=== PATIENT | female | born 1990 | race Caucasian/White ===

== ENCOUNTER → 2017-10-15 11:29 | Outpatient (CLI) | payer BC, SELFPAY ==
[2017-10-15 14:57] LABS: Absolute Lymphocyte Count 2.04 X10^3/ul (0.83-4.51); Absolute Neutrophil Count 3.7 X10^3/uL (2.0-7.7); Basophil# 0.04 X10^3/uL; Basophil% 0.6 % (0-1); Eosinophil# 0.14 X10^3/uL; Eosinophils% 2.2 % (0-5); Hematocrit 41.3 % (37-47); Hemoglobin 14.2 g/dl (12.0-15.0); Lymphocyte # 2.04 X10^3/ul (4.0); Lymphocyte % 32.7 % (19-41); Mean Corp Hgb Conc 34.4 g/gl (32-36); Mean Corpuscular Hgb 32.9 pg (27.0-32.0); Mean Corpuscular Volume 95.6 fL (81-99); Mean Platelet Vol. 9.8 fl (6.2-12.0); Monocyte# 0.36 X10^3/uL; Monocyte% 5.8 % (0-10); Neutrophil # 3.65 X10^3/uL (2.7-7.7); Neutrophil % 58.7 % (47-70); Platelet Count 332 K/mm3 (150-450); RBC Distribution Width SD 41.8 fl (35.1-43.9); Red Blood Count 4.32 M/mm3 (4.2-5.4); White Blood Count 6.2 K/mm3 (4.4-11.0)
[2017-10-15 14:58] LABS: POSITIVE COUNT NO; POSITIVE DIFFERENTIAL NO; POSITIVE MORPHOLOGY NO
[2017-10-15 15:28] LABS: Estradiol 81.2 pg/mL; Follicle Stimulating Hormone 3.1 mIU/mL; Prolactin 7.8 ng/mL
[2017-10-18 09:41] LABS: HEPATITIS B SURFACE AG Negative (Negative); HSV 1 IgG < 0.91 index (0.00-0.90); HSV 2 IgG < 0.91 index (0.00-0.90)
[2017-10-19 02:54] LABS: Rapid Plasmin Reagin (RPR) NONREACTIVE (NONREACTIVE)
== END ==
PROVIDERS: Family Provider Family Medicine; PCP Family Medicine; Visit Provider Obstetrics & Gynecology
DX: N93.9 Abnormal uterine and vaginal bleeding, unspecified (principal)
CPT/HCPCS: 82670; 83001; 84146; 85025; 86592; 86695; 86696; 87340; 87521

== ENCOUNTER → 2017-10-15 19:20 | Outpatient (CLI) | payer BC, SELFPAY ==
[2017-10-15 22:26] LABS: Chlamydia Trachomatis by PCR Negative (Negative); Neisserai gonorrhoeae by PCR Negative (Negative); Probe Check PASS; Sample Adequacy Control PASS; Specimen Processing Control PASS
[2017-10-19 12:01] LABS: HPV Reflexed? NOT INDICATED
== END ==
PROVIDERS: Family Provider Family Medicine; PCP Family Medicine; Visit Provider Obstetrics & Gynecology
DX: Z12.4 Encounter for screening for malignant neoplasm of cervix (principal); N39.3 Stress incontinence (female) (male)
CPT/HCPCS: 87491; 87591; 88175; G0145

== ENCOUNTER 2018-03-21 05:25 | Emergency (ER) | payer BC, SELFPAY ==
[2018-03-21 05:26] VITALS: BP 108/76; PULSE 81; RESP 16; TEMP 36.7; O2SAT 97
[2018-03-21] MEDS: predniSONE 20 MG Tablet 40 MG PO (05:46)
[2018-03-21] MEDS: Famotidine 20 MG Tablet PO (05:46)
[2018-03-21] MEDS: DiphenhydrAMINE 25 MG Capsule PO (05:46)
--- NOTE | 2018-03-21 05:53 | ED.VISSUMM ---
- ER Visit Summary Date of Service: 03/21/18 Chief Complaint: Swelling History of Present Illness: The patient is a 27 F who presents with lip and tongue swelling. Symptoms started about an hour prior to arrival. The patient has been packing to move and woke up early this morning with muscle aches. She took some naproxen. About an hour later, she started to have swelling of her upper and lower lips and her tongue. These areas feel itchy, and she also has some itchiness to her hands. She has some redness to her face but has not noticed any other rash. No trouble breathing. No GI symptoms like cramps or nausea. No history of anaphylaxis. She does report an allergy to Vicodin, but it makes her feel awful. She also reports an allergy to penicillin, and it makes her nauseated. Patient has a history of depression and anxiety. She takes Prozac and trazodone. These are not new for her. Patient denies any other new chemical contacts. No fevers or any other associated symptoms. Physical Examination: Afebrile and vital signs unremarkable. Patient is alert and oriented. No acute distress. Sitting, moving, breathing comfortably. She has trace edema to her upper and lower lips and tongue. Otherwise airway unremarkable. No lesions noted. She does have some erythema to her face around her mouth. No specific lesions. No ulcerations or necrosis noted. No skin peeling noted. Eyes and conjunctive are unremarkable. HEENT exam otherwise unremarkable. Heart regular. Lungs clear without wheezes. The remainder of her skin appears unremarkable. Test Results: None indicated. Emergency Department Course and Treatment: I am suspicious for an allergic reaction. She does not meet criteria for anaphylaxis. I also considered other cutaneous pathologies. There is nothing to suggest SJS or more severe reactions. Nothing to suggest cellulitis. No history of hereditary angioedema. No NOMAN inhibitor use. Patient was treated with Benadryl, Pepcid, and prednisone. She was monitored in the emergency department. Patient was advised to stop taking naproxen. On reevaluation, patient is feeling better. Rash is improved. Itching has decreased. Redness has decreased. Patient will be discharged. Continue prednisone, Benadryl, and Pepcid at home. She was cautioned that Benadryl can cause somnolence. Treatment Plan: As above Disposition: Discharged Impression: 1. Rash unclear etiology This note was generated with [employer] dictation software. It may contain incorrect words, spelling, and punctuation that were not noted in review of the chart prior to signing ED Disposition - Plan for ED Patient: Disposition: Home or Assisted Living Chief Complaint: Allergic Reaction Instructions: ED Drug React Allergic Prescriptions: Prednisone 40 mg PO DAILY 4 Days #16 tab Famotidine [Pepcid] 20 mg PO BID 5 Days #10 tab DiphenhydrAMINE [Benadryl] 25 mg PO TID 5 Days #15 cap Referrals: Yesenia Torres [Primary Care Provider] -
--- NOTE | 2018-03-21 06:13 | ED.DEP ---
ED Disposition - Plan for ED Patient: Chief Complaint: Allergic Reaction Instructions: ED Drug React Allergic Prescriptions: Prednisone 40 mg PO DAILY 4 Days #16 tab Famotidine [Pepcid] 20 mg PO BID 5 Days #10 tab DiphenhydrAMINE [Benadryl] 25 mg PO TID 5 Days #15 cap Referrals: Yesenia Torres [Primary Care Provider] -
[2018-03-21 06:30] VITALS: BP 114/70; PULSE 66; RESP 16; O2SAT 98
[2018-03-21 06:34] VITALS: BP 114/80; PULSE 66; RESP 16; O2SAT 98
== END 2018-03-21 06:35 | disposition home or self-care (01) ==
PROVIDERS: Emergency Provider Emergency Medicine; Family Provider Family Medicine; PCP Family Medicine
DX: R21 Rash and other nonspecific skin eruption (principal); R22.0 Localized swelling, mass and lump, head; F32.9 Major depressive disorder, single episode, unspecified; F41.9 Anxiety disorder, unspecified; Z79.899 Other long term (current) drug therapy; Z88.0 Allergy status to penicillin; Z88.8 Allergy status to other drugs, medicaments and biological substances
CPT/HCPCS: 99283